=== PATIENT | female | born 1970 ===

== ENCOUNTER 2017-05-01 08:48 | Outpatient (CLI) | payer OTHER ==
--- NOTE | 2017-05-01 12:22 | Mammography Report ---
LEFT DIGITAL DIAGNOSTIC MAMMOGRAM with CAD: 05/01/17 08:48:00 CLINICAL: This patient presented for biopsy of calcifications but only screen views were provided. It was unclear from the report and the screening images as to exactly how many calcifications were identified and the exact location of all suspicious calcifications in the breast. COMPARISON:Recent [facility] screening mammogram FINDINGS:Routine views plus lateral medial and CC magnification views were performed. 2 groups of calcifications are identified. A group of punctate calcifications 3 cm from the nipple and slightly above the nipple correlates with a group of calcifications that was marked by catheter on the screening exam. Although one calcification layers on the lateral view, the other calcifications have a ductal orientation on the lateral view. A second group of calcifications with similar morphology is located approximately 6 cm from the nipple. These calcifications are medial to the nipple. No associated mass or architectural distortion. IMPRESSION: 2 groups of calcifications which have intermediate suspicion for malignancy. Recommend stereotactic biopsy of both groups if technically feasible. We cannot do the procedure at this time since the patient does not have the proper order. However, we will attempt to do a 2 site stereotactic biopsy when the patient returns with the proper order. BI-RADS CATEGORY: 4--Suspicious ACR BI-RADS MAMMOGRAPHIC CODES: 0 = Needs additional imaging evaluation; 1 = Negative; 2 = Benign; 3 = Probably benign; 4 = Suspicious; 5 = Malignant; 6 = Known biopsy-proven malignancy COMMENT: 1. Dense breast tissue, i.e., adenosis, fibrocystic changes, etc., may obscure an underlying neoplasm. 2. Approximately 10% of cancers are not detected with mammography. 3. A negative mammography report should not delay biopsy if a clinically suspicious mass is present. COMMENT: Patient follow-up letters are generated by our [employer] application.
== END 2017-05-01 08:49 | disposition home or self-care (01) ==
LOC: SPVWC 08:48
PROVIDERS: ATTEND Family Medicine
DX: R92.1 Mammographic calcification found on diagnostic imaging of breast (principal)
CPT/HCPCS: G0206-LT